=== PATIENT | female | born 1970 | race Two or more races ===

== ENCOUNTER 2019-06-13 21:24 | Emergency (ER) | payer SELFPAY ==
[~2019-06-13] VITALS: Ht 160 cm; Wt 70.0 kg
[2019-06-13 21:30] VITALS: Ht 160 cm; Wt 70.0 kg
[2019-06-13 22:50] LABS: BASOPHIL % 0 % (0-2); PLATELET COUNT 451 x10^3mcL (130-400); RED CELL DISTRIBUTION WIDTH 19.3 % (11.5-14.5)
[2019-06-13 23:06] LABS: CALCIUM 8.4 mg/dL (8.5-10.1); CHLORIDE SERUM 104 mmol/L (98-107); CREATININE SERUM 0.6 mg/dL (0.6-1.0); GFR1 > 60 mL/min; GLUCOSE SERUM 104 mg/dL (74-106); POTASSIUM SERUM 3.8 mmol/L (3.5-5.1); SODIUM SERUM 140 mmol/L (136-145)
[2019-06-13 23:22] LABS: ALBUMIN 3.5 g/dL (3.4-5.0); ALKALINE PHOSPHATASE 130 U/L (46-116); ALT/SGPT 23 U/L (14-59); AST/SGOT 12 U/L (15-37); BILIRUBIN TOTAL 0.18 mg/dL (0.20-1.00); TOTAL PROTEIN, SERUM 7.7 g/dL (6.4-8.2)
[2019-06-14 01:58] VITALS: BP 116/76
== END 2019-06-14 01:58 | disposition home or self-care (01) ==
LOC: ED 21:24
PROVIDERS: Emergency Medicine
DX: F41.1 Generalized anxiety disorder (principal); R42 Dizziness and giddiness; R07.89 Other chest pain
CPT/HCPCS: J0780; J1885; Q0092; Q0163